=== PATIENT | male | born 1955 | race Caucasian/White ===

== ENCOUNTER 2018-10-01 05:21 | Inpatient (IN) ==
[2018-10-01] MEDS ORDERED: ASPIRIN PO ONE (05:48)
--- NOTE | 2018-10-01 05:49 | PROVIDER DOCUMENTATION ---
HPI-Chest Pain - General Chief Complaint: Chest Pain Stated Complaint: CHEST PAIN Time Seen by Provider: 10/01/18 05:42 Allergies/Adverse Reactions: Patient Allergies Allergy/AdvReac Type Severity Reaction Status Date / Time No Known Allergies Allergy Verified 10/01/18 05:53 Home Medications: Home Medication List Medication Instructions Recorded Confirmed Last Taken Type AMLODIPINE/BENAZEpril [Lotrel 5/20 1 each PO DAILY 12/14/12 12/14/12 12/14/12 06:00 History mg] Clarithromycin [Biaxin] 500 mg PO BID #14 tablet 12/14/12 Unknown Rx Colchicine 0.6 mg PO DAILY 12/14/12 12/14/12 12/14/12 06:00 History Cyclobenzaprine [Flexeril] 10 mg PO QHS 12/14/12 12/14/12 12/13/12 20:00 History Dhcodeine Bt/Acetaminophn/Caff 1 each PO DAILY 12/14/12 12/14/12 12/14/12 06:00 History [Hzjqzluvlks-Tsoa-Iasrkzgndylmf] Esomeprazole [Nexium] 40 mg PO QHS 12/14/12 12/14/12 12/13/12 20:00 History Meclizine [Antivert] 25 mg PO TID PRN 12/14/12 12/14/12 Unknown History Metaxalone [Skelaxin] 800 mg PO TID 12/14/12 12/14/12 12/14/12 06:00 History Ropinirole HCl [Requip Xl] 2 mg PO QHS 12/14/12 12/14/12 12/13/12 20:00 History Zolpidem Tartrate 10 mg PO QHS 12/14/12 12/14/12 12/13/12 20:00 History Benzonatate [Tessalon Perle] 100 mg PO TID PRN #21 cap 11/08/17 Unknown Rx Amlodipine [Norvasc] 10 mg PO DAILY #10 tab 04/21/18 Unknown Rx Hydrochlorothiazide 25 mg PO DAILY #10 tab 04/21/18 Unknown Rx Prednisone 20 mg PO DAILY 6 Days #6 tab 04/21/18 Unknown Rx - History of Present Illness-CP Nature of Presenting Problem: Patient reports left sided, constant dull chest pain with radiation to his jaw since 2am. Patient was at work when it started. States that he feels a little better now, but still has some pain. Denies any recent aspirin. Review of Systems - Adult - REVIEW OF SYSTEMS - ADULT Constitutional: reports: see HPI Eyes: reports: no symptoms reported Ears, Nose, Mouth & Throat: reports: no symptoms reported Cardiovascular: reports: see HPI Respiratory: reports: no symptoms reported Gastrointestinal: reports: no symptoms reported Genitourinary: reports: no symptoms reported Musculoskeletal: reports: no symptoms reported Integumentary: reports: no symptoms reported Neurological: reports: no symptoms reported Psychiatric: reports: no symptoms reported Endocrine: reports: no symptoms reported Hematologic/Lymphatic: reports: no symptoms reported Allergic/Immunologic: reports: no symptoms reported All Other Systems: Reviewed and Negative Past History - Adult - PAST MEDICAL HISTORY-ADULT Review of Records: reports: Old Records Reviewed Major Childhood Illnesses: reports: denies history Cardiovascular: reports: HTN, hyperlipidemia Respiratory: reports: denies history Gastrointestinal: reports: GERD Obstetrical/Gynecological: reports: denies history Genitourinary: reports: denies history Musculoskeletal: reports: denies history Neurological: reports: denies history Endocrine/Immune: reports: denies history Other Conditions: reports: denies history - PRIOR SURGERIES/PROCEDURES Surgical/Procedure History: reports: appendectomy, tonsillectomy, joint replacement (total knee) - IMMUNIZATION STATUS Childhood Immunizations: See Nurse Assessment Flu Vaccine: See Nurse Assessment - FAMILY HISTORY Family History: reviewed, not pertinent Physical Exam-General - PHYSICAL EXAM-ADULT Initial Vital Signs Reviewed: Yes - CONSTITUTIONAL General Appearance: appears well, alert, no apparent distress - EYES Eyes: PERRL/EOMI, pink conjunctivae, anisocoria - HEAD, EARS, NOSE, MOUTH & THROAT HENMT: normocephalic/atraumatic, moist mucous membranes, normal ENT inspection - NECK Neck: non-tender - RESPIRATORY Respiratory: chest non-tender, lungs clear, normal breath sounds, no pleuratic chest pain - CARDIOVASCULAR Cardiovascular: normal peripheral pulses, regular rate, rhythm, no edema, no gallop, no JVD, no murmur - GASTROINTESTINAL (ABDOMEN) Abdominal Exam: non tender, soft - LYMPHATIC Lymphatic: no adenopathy - MUSCULOSKELETAL Back Exam: normal inspection, no CVA tenderness Extremity: normal range of motion, non-tender, normal gait, normal inspection, no pedal edema - SKIN Integumentary: normal color, normal turgor, warm/dry - 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, grossly normal, no motor/sensory deficits - PSYCHIATRIC Psych/Mental Status: normal mood/affect, normal thought content, normal thought process, oriented x 3 - HEART Score HEART Score: History: Moderately Suspicious HEART Score: ECG: Non-Specific Repolarization Disturbance/LBBB/PM HEART Score: Age: 45-65 Years HEART Score: Risk Factors for Atherosclerotic Disease: 1 or 2 Risk Factors HEART Score: Troponin: < or = Normal Limit Total HEART Score:: 4 Progress - PLAN OF CARE/RESULTS Progress/Plan/Lab Results: Vital Signs - 8 hr 10/01/18 05:34 10/01/18 05:48 10/01/18 06:32 Temperature 98.0 F Pulse Rate 78 71 67 Respiratory Rate 20 20 17 Blood Pressure 162/93 147/85 134/80 O2 Sat by Pulse Oximetry 96 95 95 Laboratory Results - last 24 hr 10/01/18 10/01/18 10/01/18 06:00 06:00 06:04 WBC 9.40 RBC 5.27 Hgb 15.1 Hct 45.5 MCV 86.3 MCH 28.7 MCHC 33.2 RDW Std Deviation 13.2 Plt Count 250 MPV 10.4 Immature Gran % (Auto) 0.2 Neut % (Auto) 77.2 H Lymph % (Auto) 15.3 L [place] % (Auto) 5.3 Eos % (Auto) 1.3 Baso % (Auto) 0.7 Immature Gran # (Auto) 0.02 Neut # (Auto) 7.25 H Lymph # (Auto) 1.44 [place] # (Auto) 0.50 Eos # (Auto) 0.12 Baso # (Auto) 0.07 D-Dimer, Quantitative Sodium 140 Potassium 3.4 L Chloride 100 Carbon Dioxide 23 L Anion Gap 17 BUN 15 Creatinine 1.5 H Estimated GFR/1.73 m2 47 BUN/Creatinine Ratio 10 Glucose 255 H Calculated Osmolality 289 Calcium 9.5 Total Bilirubin 0.48 AST 41 H ALT 42 Alkaline Phosphatase 78 Creatine Kinase 237 H Creatine Kinase Index 1.5 CK-MB (CK-2) 3.54 Troponin T < 0.010 Total Protein 7.5 Albumin 4.5 Globulin 3.0 Albumin/Globulin Ratio 1.5 0610/01/18 10/01/18 06:37 08:00 08:00 WBC RBC Hgb Hct MCV MCH MCHC RDW Std Deviation Plt Count MPV Immature Gran % (Auto) Neut % (Auto) Lymph % (Auto) [place] % (Auto) Eos % (Auto) Baso % (Auto) Immature Gran # (Auto) Neut # (Auto) Lymph # (Auto) [place] # (Auto) Eos # (Auto) Baso # (Auto) D-Dimer, Quantitative 0.71 H Sodium Potassium Chloride Carbon Dioxide Anion Gap BUN Creatinine Estimated GFR/1.73 m2 BUN/Creatinine Ratio Glucose Calculated Osmolality Calcium Total Bilirubin AST ALT Alkaline Phosphatase Creatine Kinase 209 H Creatine Kinase Index 1.6 CK-MB (CK-2) 3.28 Troponin T < 0.010 Total Protein Albumin Globulin Albumin/Globulin Ratio Orders Category Date Time Status CHEST-2 VIEWS [RAD] Stat Exams 10/01/18 05:[address] ANGIOGRM PULMONARY ARTERIES [CT] Stat Exams 10/01/18 08:12 Completed CBC WITH DIFF [HEME] Stat Lab 10/01/18 06:04 Completed CK PROFILE [SP CHEM] Stat Lab 10/01/18 06:00 Completed CK PROFILE [SP CHEM] Stat Lab 10/01/18 08:00 Completed COMPREHENSIVE METABOLIC PANEL [CHEM] Stat Lab 10/01/18 06:00 Completed D-DIMER [COAG] Stat Lab 10/01/18 06:37 Completed TROPONIN T Stat Lab 10/01/18 06:00 Completed TROPONIN T Stat Lab 10/01/18 08:00 Completed Aspirin Med 10/01/18 05:48 Discontinued 325 mg PO NOW ONE EKG [EKG] Stat Ther 10/01/18 05:37 Draft EKG [EKG] Stat Ther 10/01/18 07:45 Draft Result Diagrams: 10/01/18 06:04 10/01/18 06:00 - REASSESSMENT Reassessment #1 Time Reassessed: 09:40 (assumed care @ shift change. Have interviewed, examined. Pt had sudden onset sharp ant CP, radiated across whole ant chest, @ ~0200. Pain eased, recurred ~0300. That time went up into neck, had funny felling in L arm. Also had SOB. Hx of DM, HTN, high chol. Heart RRR, Lungs BCTA. Discussed with pt, he reluctantly agrees to stay for further eval.) - EKG 2 Time of EKG reading by physician:: 08:11 EKG Read and Signed by:: Antonio Flores EKG Interpretation (*Must complete 3 of following elements*): Normal Rate: 63 Rhythm: NSR [place]: normal QRS: normal - XRAY 1 XRAY Study: Chest Impression: Normal (EXAM: CHEST-2 VIEWS 10/01/2018 HISTORY: cp TECHNIQUE: AP portable at 0608 COMMENT: There is elevation of left hemidiaphragm which was also the case on 11/08/2017. The lungs are clear and the heart and pulmonary vascularity are within normal limits. IMPRESSION: No evidence of acute disease. Electronically signed by Howie Chou 10/01/2018 7:04 AM 10/01/18 0704 Interpreting Physician: Howie Chou MD Dictated Date/Time: 10/01/18 0703 cc: Shmuel Jarvis MD; None,PCP) - CT/MRI 1 CT Study: Angiogram Impression: Normal (CT ANGIOGRM PULMONARY ARTERIES - 10/01/2018 INDICATION: CP, elev dimer TECHNIQUE: Axial CT images were obtained after administering intravenous contrast. Coronal MIP images were generated. COMPARISON: None FINDINGS: There is no pulmonary embolism. Heart and great vessels are normal. The lungs are clear. There is some minimal linear atelectasis in the lung bases. Upper abdominal images are normal. There are cholecystectomy clips. There are moderate degenerative changes of the spine. No acute or suspicious bony lesion. IMPRESSION: Negative exam. This exam was performed using automated exposure control, adjustment of mA or kV according to patient size, and/or use of iterative reconstruction technique Electronically signed by John Hewitt 10/01/2018 8:53 AM 10/01/18 0853 Interpreting Physician: John Hewitt MD Dictated Date/Time: 10/01/18 0851 cc: Antonio Flores MD; None,PCP) - CHANGE OF SHIFT REPORT (ED Provider) 1 Report Given and Care Transferred to:: abby Time of Transfer: 07:00 Items Pending: Labs Departure - Departure Date of Disposition Decision: 10/01/18 Time of Disposition Decision: 09:57 DIAGNOSIS: Chest pain Qualifiers: Chest pain type: unspecified Qualified Code(s): R07.9 - Chest pain, unspecified Disposition: ADMITTED INPATIENT 09 Certified Medical Emergency: Emergent Condition: Good Referrals and Follow-Ups: None,PCP [Primary Care Provider] - - Critical Care Note This patient required my direct & personal management of CC.: No Attestation - Physician/ KIRTI Attestation Patient care was provided by Advanced Practice Provider:: No The physician spent face to face time with patient:: Yes Advanced Practice Provider documentation review:: Supervising physician onsite and consulted in the evaluation and care of this patient. The physician did have a face to face encounter with the patient.
--- NOTE | 2018-10-01 06:13 | ED EKG INTERP ---
This chart was entered by Yomi Trujillo Scribe, acting as scribe for Shmuel Jarvis MD. EKG Interpretation - EKG Time of EKG reading by physician:: 05:40 EKG Read and Signed by:: Shmuel Jarvis EKG Interpretation (*Must complete 3 of following elements*): Normal (nonspecific ST abnormality) Rate: 74 Rhythm: nsr [place]: normal [place] Interval: normal Attestation - Physician/ KIRTI Attestation The physician spent face to face time with patient:: Yes Advanced Practice Provider documentation review:: Supervising physician onsite and consulted in the evaluation and care of this patient. The physician did have a face to face encounter with the patient. This chart was documented by the indicated scribe, (Yomi Trujillo Scribe) and accurately reflects the services I performed and decisions made by me, Shmuel Jarvis MD, as attested by the provider's signature.
[2018-10-01 06:15] LABS: BASO# 0.07 X1000 (0.0-0.2); BASO% 0.7 % (0.0-0.8); EOS# 0.12 X1000 (0.0-0.7); EOS% 1.3 % (0.0-10.0); HEMATOCRIT 45.5 % (42.0-52.0); HEMOGLOBIN 15.1 g/dL (14.0-18.0); IMM GRAN# 0.02 X1000 (0.0-0.04); IMM GRAN% 0.2 % (0.0-0.5); LYMPH# 1.44 X1000 (1.2-3.4); LYMPH% 15.3 % (20.5-51.1); MCH 28.7 PG (27-31); MCHC 33.2 g/dL (33-37); MCV 86.3 FL (81-99); MONO% 5.3 % (1.7-9.3); MPV 10.4 FL (7.4-10.4); NEUT# 7.25 X1000 (1.4-6.5); NEUT% 77.2 % (42.2-75.2); PLT 250 X1000 (130-400); RBC 5.27 XMIL (4.7-6.1); RDW 13.2 % (11.5-14.5)
[2018-10-01 06:47] LABS: ALB/GLOB RATIO 1.5; ALBUMIN 4.5 g/dL (3.5-5.0); CALCIUM 9.5 mg/dL (8.8-10.2); CREATININE 1.5 mg/dL (0.7-1.2); POTASSIUM 3.4 mmol/L (3.5-5.1); TOTAL BILIRUBIN 0.48 mg/dL (0.20-1.00); TOTAL PROTEIN 7.5 g/dL (6.3-8.3)
--- NOTE | 2018-10-01 07:06 | EKG Report ---
Test Performed on : 10/01/2018 05:40:52 AM Test Reason : cp Blood Pressure : / mmHG Vent. Rate : 074 BPM Atrial Rate : 074 BPM P-R Int : 158 ms QRS Dur : 086 ms QT Int : 396 ms P-R-T Axes : 042 035 058 degrees QTc Int : 439 ms Normal sinus rhythm. Nonspecific ST abnormality Abnormal ECG When compared with ECG of 14-DEC-2012 08:57, No significant change was found Unconfirmed Result
--- NOTE | 2018-10-01 07:07 | Diag Imaging Result Doc PS360 ---
EXAM: CHEST-2 VIEWS 10/01/2018 HISTORY: cp TECHNIQUE: AP portable at 0608 COMMENT: There is elevation of left hemidiaphragm which was also the case on 11/08/2017. The lungs are clear and the heart and pulmonary vascularity are within normal limits. IMPRESSION: No evidence of acute disease. Electronically signed by Howie Chou 10/01/2018 7:04 AM
[2018-10-01 07:20] LABS: CK INDEX 1.5 (0.0-2.5); CK-MB 3.54 ng/mL (0.0-5.0)
--- NOTE | 2018-10-01 08:11 | EKG Report ---
Test Performed on : 10/01/2018 08:08:23 AM Test Reason : REPEAT Blood Pressure : / mmHG Vent. Rate : 063 BPM Atrial Rate : 063 BPM P-R Int : 166 ms QRS Dur : 082 ms QT Int : 430 ms P-R-T Axes : 028 029 048 degrees QTc Int : 440 ms Normal sinus rhythm. Normal ECG When compared with ECG of 01-OCT-2018 05:40, (Unconfirmed) No significant change was found Unconfirmed Result
--- NOTE | 2018-10-01 08:55 | Diag Imaging Result Doc PS360 ---
CT ANGIOGRM PULMONARY ARTERIES - 10/01/2018 INDICATION: CP, elev dimer TECHNIQUE: Axial CT images were obtained after administering intravenous contrast. Coronal MIP images were generated. COMPARISON: None FINDINGS: There is no pulmonary embolism. Heart and great vessels are normal. The lungs are clear. There is some minimal linear atelectasis in the lung bases. Upper abdominal images are normal. There are cholecystectomy clips. There are moderate degenerative changes of the spine. No acute or suspicious bony lesion. IMPRESSION: Negative exam. This exam was performed using automated exposure control, adjustment of mA or kV according to patient size, and/or use of iterative reconstruction technique Electronically signed by John Hewitt 10/01/2018 8:53 AM
[2018-10-01 08:59] LABS: CK INDEX 1.6 (0.0-2.5); CK-MB 3.28 ng/mL (0.0-5.0)
[2018-10-01] MEDS ORDERED: ZOFRAN IV PRN (10:36)
[2018-10-01] MEDS ORDERED: NS 1,000 ML IV ONE (11:29)
--- NOTE | 2018-10-01 13:02 | HISTORY AND PHYSICAL ---
CHIEF COMPLAINT: Chest pain with numbness in his left jaw and left arm. HISTORY OF PRESENT ILLNESS: This is a 62-year-old gentleman with a history of diabetes mellitus, gastroesophageal reflux disease, hyperlipidemia and hypertension. He presented to the emergency room after having a sudden onset of sharp substernal chest pain that started while he was walking at his job. He said it started about 2 a.m. It initially felt like he was hit in the chest with a bat and spread across his chest. It has slowly resolved to the point that it was almost gone. Then he had another sudden onset of sharp pain along with lightheadedness, dizziness, nausea with left facial and arm numbness. He denied any change in vision, any difficulty walking or standing, any palpitations, any vomiting. PAST MEDICAL HISTORY: Diabetes mellitus, gastroesophageal reflux disease, hyperlipidemia and hypertension. PAST SURGICAL HISTORY: Appendectomy, cholecystectomy, bilateral knee replacements. SOCIAL HISTORY: He denies alcohol or illicit drug use. He occasionally uses smokeless tobacco. 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 He is . ALLERGIES: No known drug allergies. HOME MEDICATIONS: A list will be obtained by the nursing staff and once verified, will review and restart as appropriate. REVIEW OF SYSTEMS: Discussed with the patient with pertinent positives stated in the HPI. He denied any syncope, palpitations, any vomiting, diarrhea, constipation, any black or bloody vomitus or stools, productive cough, fever, chills, any night sweats, any hematuria, dysuria, frequency or urgency. PHYSICAL EXAMINATION: GENERAL: This is a 62-year-old gentleman who is sitting up in the stretcher in the emergency room in no distress. VITAL SIGNS: Blood pressure is 134/80 with a heart rate of 67, respirations are 18, temperature is 98 degrees with room air saturations 95 to 96 percent. EYES: Pupils equal, round, react to light. EOMS are intact. Sclerae anicteric. HEENT: Head is normocephalic, atraumatic. Mucous membranes are moist. NECK: Supple. Trachea midline. CARDIOVASCULAR: Regular rate and rhythm. S1 and S2 are appreciated. He has no lower extremity edema. Calves are nontender bilateral with peripheral pulses palpable x4 extremities. PULMONARY: Breath sounds are clear. No increased work of breathing noted. Chest rises and falls symmetric with respiration. Chest wall is nontender to palpation. GASTROINTESTINAL: Abdomen is soft, nontender, nondistended with bowel sounds in all 4 quadrants. GENITOURINARY: He has no CVA or suprapubic tenderness. NEUROLOGIC: He is alert and oriented x3. SKIN: Warm and dry. LABS: WBC is 9.4 with hemoglobin 15, hematocrit 45.5, and platelets of 250. D- dimer 0.71. Sodium is 140, potassium 3.4, BUN 15, creatinine 1.5 with a glucose of 255. CPK was 237, repeat 209. Troponin is negative on multiple occasions. X-RAYS: 1. Chest x-ray revealed no evidence of acute disease. There is persistent elevation of the left hemidiaphragm which was also the case on 11/08/2017 film. Lungs are clear. Heart and pulmonary vascularity are within normal limits. 2. Pulmonary arteriogram reveals no pulmonary embolism. Heart and great vessels are normal. Lungs are clear. There is some minimal atelectasis in the lung bases. 3. Upper abdominal images are normal. There are cholecystectomy clips. There are moderate degenerative changes of the spine. No acute or suspicious bony lesion. Negative exam. 4. EKG revealed normal sinus rhythm at a rate of [address]-T changes. ASSESSMENT AND PLAN: 1. Chest pain. The patient will be admitted to the hospital and placed on telemetry. We will continue to rule out. 2. Numbness to left arm and left side of his face. This is resolved. 3. Acute kidney injury. As the patient had contrast for computed tomography angiography pulmonary, we will give a liter of saline now and continue at 125 an hour and recheck labs. Will hold any renal toxic medications. 4. Diabetes mellitus. We will place him on pattern blood glucose with sliding scale insulin. 5. Gastroesophageal reflux disease. Proton pump inhibitor. 6. Hyperlipidemia. 7. Hypertension. We will identify his home medications and continue. 8. Elevated D-dimer. Computed tomography angiography pulmonary was negative for pulmonary embolus. We will obtain a bilateral lower extremity Doppler. Further treatments pending discussion with Dr Rg and hospital course. Dictated by ULYSSES Degroot for Saw Rg MD cc: ULYSSES Degroot MD [facility] [place] [facility]
[2018-10-01] MEDS: NS 1,000 ML IV SCH (13:39)
[2018-10-01 15:38] LABS: BASO# 0.13 X1000 (0.0-0.2); BASO% 1.7 % (0.0-0.8); HEMATOCRIT 40.8 % (42.0-52.0); HEMOGLOBIN 13.6 g/dL (14.0-18.0); IMM GRAN# 0.02 X1000 (0.0-0.04); IMM GRAN% 0.3 % (0.0-0.5); LYMPH# 2.01 X1000 (1.2-3.4); LYMPH% 26.5 % (20.5-51.1); MCH 29.2 PG (27-31); MCHC 33.3 g/dL (33-37); MCV 87.6 FL (81-99); MONO# 0.66 X1000 (0.11-0.59); MONO% 8.7 % (1.7-9.3); MPV 10.1 FL (7.4-10.4); NEUT# 4.47 X1000 (1.4-6.5); NEUT% 58.8 % (42.2-75.2); PLT 208 X1000 (130-400); RBC 4.66 XMIL (4.7-6.1); RDW 13.3 % (11.5-14.5); WBC 7.59 X1000 (4.8-10.8)
[2018-10-01 16:04] LABS: ALB/GLOB RATIO 1.5; ALBUMIN 3.8 g/dL (3.5-5.0); CALCIUM 8.6 mg/dL (8.8-10.2); CREATININE 1.3 mg/dL (0.7-1.2); POTASSIUM 3.3 mmol/L (3.5-5.1); TOTAL BILIRUBIN 0.38 mg/dL (0.20-1.00); TOTAL PROTEIN 6.4 g/dL (6.3-8.3)
--- NOTE | 2018-10-01 16:05 | HISTORY AND PHYSICAL ---
ADDENDUM: Mr. Kiser has been admitted today because of chest pain. He said he was at work and at about 2:00 in the morning he started feeling this chest pain which was extremely severe, and felt like somebody was sitting on his chest. He felt nauseated and felt like he was going to throw up. He came to the emergency room where he was evaluated. His blood pressure was slightly elevated at the time. His current physical exam is unremarkable except for dryness on the mucosa. Chest is clear. Cardiovascular regular rate and rhythm. LABORATORY: 1. I have reviewed his lab work. His troponin so far has been negative x2. His chemistry shows a creatinine of 1.5. In 2013, it was 1.1. 2. Current EKG on admission only shows normal sinus rhythm. No ST-segment or T-wave abnormality. A repeat is the same. 3. A CT of the lungs is negative for any PE. ASSESSMENT: 1. Chest pain in a patient with remarkable risk factors including diabetes mellitus, age, previous smoker, and renal failure. I think it is reasonable to do complete cardiac rule out on him. We will do an echo. We will also do a stress test in the morning, adequately hydrate him overnight, and continue to monitor his heart. 2. Diabetes mellitus. We will continue with insulin regimen for now. Janumet which is one of his home medication will be withheld. 3. Renal failure, unclear of the etiology and duration. We will continue with gentle hydration. We will also withhold his hydrochlorothiazide as well as the benazepril, which seems to be part of his home medications for now. 4. Hypertension. Currently controlled. Please refer to the details of and P in the chart which has been dictated by the NPS. cc: Saw Rg MD
[2018-10-02] MEDS: NS 1,000 ML IV SCH ×2 (01:26→10:20)
[2018-10-02 06:33] LABS: BASO# 0.06 X1000 (0.0-0.2); BASO% 0.9 % (0.0-0.8); EOS% 4.3 % (0.0-10.0); HEMATOCRIT 41.5 % (42.0-52.0); HEMOGLOBIN 13.6 g/dL (14.0-18.0); LYMPH# 1.47 X1000 (1.2-3.4); LYMPH% 21.2 % (20.5-51.1); MCH 29.1 PG (27-31); MCHC 32.8 g/dL (33-37); MCV 88.7 FL (81-99); MONO# 0.57 X1000 (0.11-0.59); MONO% 8.2 % (1.7-9.3); MPV 10.6 FL (7.4-10.4); NEUT# 4.53 X1000 (1.4-6.5); NEUT% 65.4 % (42.2-75.2); PLT 196 X1000 (130-400); RBC 4.68 XMIL (4.7-6.1); RDW 13.4 % (11.5-14.5); WBC 6.93 X1000 (4.8-10.8)
[2018-10-02 06:56] LABS: AGAP 8; ALBUMIN 3.6 g/dL (3.5-5.0); BUN 12 mg/dL (8-22); CALCIUM 8.1 mg/dL (8.8-10.2); CHLORIDE 106 mmol/L (98-107); COSMO 284; CREATININE 1.1 mg/dL (0.7-1.2); ESTIMATED GFR > 60; GLUCOSE 122 mg/dL (70-104); PHOSPHORUS 3.1 mg/dL (2.7-4.5); POTASSIUM 3.9 mmol/L (3.5-5.1); SODIUM 142 mmol/L (136-145); TCO2 28 mmol/L (25-35)
--- NOTE | 2018-10-02 07:56 | ECHO REPORT ---
ORDER DATE: 10/01/2018 MEASUREMENTS: Septal thickness 1.3, left ventricular internal diameter end diastole 4.9, posterior wall thickness 1.3, left ventricular internal diameter end systole 3.2, aortic root 3.6, left atrium 3.9. SUMMARY: 1. Fair quality study. 2. Aortic valve was without evidence of structural abnormality and opens adequately on 2- dimensional images. Peak gradient the across aortic valve is less than 10 mmHg. Mitral, tricuspid, and pulmonic valves are without evidence of structural abnormality. There is trace tricuspid regurgitation. Aortic root is normal in size. 3. Normal left ventricular chamber size with mild concentric left ventricular hypertrophy is demonstrated. Estimated left ventricular ejection fraction appears to be at least 65%. No regional wall motion abnormalities are evident. Left atrium, right atrium, right ventricle are normal size with normal right ventricular systolic function. 4. No pericardial effusion. 5. Appearance of the inferior vena cava suggests normal central venous pressure. cc: MD Saw Abreu MD
[2018-10-02] MEDS ORDERED: LEXISCAN ONE (08:34)
[2018-10-02 11:27] VITALS: BP 158/88
--- NOTE | 2018-10-02 13:03 | Diag Imaging Result Document ---
PROCEDURE NAME: MYOCARDIAL PERF SCAN, STR/REST - 10/02/2018 STUDY: Lexiscan Cardiolite stress test. FINDINGS: Lexiscan was infused per standard protocol. There was no chest pain. Stress electrocardiogram was negative for ischemia. Following Lexiscan infusion, Cardiolite was injected. 15.49 millicuries of Cardiolite was injected for the rest phase; 46 mCi of Cardiolite was injected for the stress phase. Gated SPECT images were obtained in standard views. Images revealed normal left ventricular cavity size. There is significant chest wall attenuation. There is no evidence of ischemia. There is low-grade fixed defect in the left ventricular apex with normal wall motion. This could represent attenuation defect or scar. Left ventricular ejection fraction by gated SPECT was 67%. There is no extracardiac uptake of the radioisotope. CONCLUSIONS: 1. No chest pain. 2. Negative Lexiscan stress electrocardiogram. 3. Myocardial perfusion images revealed no evidence of ischemia. 4. There is low-grade fixed defect in the left ventricular apex with normal wall motion and chest wall attenuation. This could represent attenuation defect. Low probability of scar. Left ventricular ejection fraction by gated SPECT was 67%. cc: MD Saw Root MD
--- NOTE | 2018-10-02 21:55 | DISCHARGE SUMMARY ---
ADMISSION DATE: 10/01/2018 DISCHARGE DATE: 10/02/2018 DIAGNOSES: 1. Chest pain. The patient has ruled out by enzymes. 2. Numbness to left arm and side of his face, resolved. 3. Acute kidney injury, resolved. 4. Diabetes mellitus. 5. Gastroesophageal reflux disease. 6. Hypertension. 7. Hyperlipidemia. 8. Elevated D-dimer. DIAGNOSTICS: 1. 10/01/2018 chest x-ray revealed no evidence of acute disease . 2. 10/01/2018 CTA pulmonary arteries revealed negative exam. 3. Echocardiogram revealed an ejection fraction of 65% with no regional wall motion abnormalities. No pericardial effusion. 4. Myocardial perfusion scan stress and rest conclusions no chest pain, negative Lexiscan stress electrocardiogram, myocardia perfusion images revealed no evidence of ischemia. There is a low-grade fixed defect in the left ventricular apex with normal wall motion and chest wall attenuation. This could represent attenuation defect low probability of scar. Left ventricular ejection fraction by gated SPECT was 67%. HOSPITAL COURSE: Mr. Kiser presented to the emergency room after having chest pain and numbness in his left arm and jaw that resolved. He had no recurrence of chest pain. He was ruled out by enzymes and EKG. Echocardiogram as stated above. He had a negative nuclear stress test and thankfully he is ready to be discharged. DISCHARGE PHYSICAL EXAM: Vital Signs: 158/88 with a heart rate of 63, respirations 16, temperature is 98.3 degrees with room air saturations 95-96%. Cardiovascular: Regular rate and rhythm. S1, S2 appreciated. Pulmonary: Breath sounds are clear. No increased work of breathing noted. Gastrointestinal: Soft, nontender, nondistended. Bowel sounds in all 4 quadrants. Neurologic: He is alert, oriented x3. Skin: Is warm and dry. Extremities: He has no clubbing, cyanosis, or edema. Calves are nontender with peripheral pulses palpable x4 extremities. FOLLOWUP: He is to follow up with his primary care physician in the next 2 to 3 weeks sooner if needed. He needs to call Friday to schedule an appointment . DISCHARGE MEDICATIONS: 1. Singulair 10 mg p.o. daily. 2. Protonix 40 mg p.o. daily. 3. Norvasc 10 mg p.o. daily. 4. Jardiance 10 mg p.o. daily. 5. Janumet XR one b.i.d. 6. Colchicine 0.6 p.o. daily. 7. Lunesta 2 mg at bedtime p.r.n. inability to sleep. He is being discharged home in stable condition with family members. TIME SPENT: Greater than 30 minutes. Dictated by ULYSSES Degroot for Saw Rg MD cc: ULYSSES Degroot MD I have seen and examined Mr Kiser today. He is currently asymptomatic. No chest pain.Vitals stable and physical exams unremarkable. Mr Kiser is stable for discharge. I have reviewed and reconciled his home medications. I agree with the above discharge summary. JT SAVAGE
== END 2018-10-02 14:55 | disposition home or self-care (01) | DRG 313 ==
LOC: ED 05:21 → EDIPHOLD 11:08 → 4N 12:04
PROVIDERS: ATTEND Internal Medicine
CPT/HCPCS: 71020; 71046; 71275; 78452; 80053; 80069; 82550; 82553; 84484; 85025; 85379; 93005; 93017; 93306; 93970; 99285; A9270; A9500; J2785; J7030; Q9967